=== PATIENT | female | born 1950 | race Two or more races ===

== ENCOUNTER 2016-07-26 16:04 | Emergency (ER) | payer SELFPAY ==
[~2016-07-26] VITALS: Ht 160 cm; Wt 90.7 kg
[2016-07-26 22:11] VITALS: BP 167/95
== END 2016-07-26 22:58 | disposition home or self-care (01) ==
LOC: EDBD 16:04 → ER 16:13
DX: S42.201A Unspecified fracture of upper end of right humerus, initial encounter for closed fracture (principal); E11.9 Type 2 diabetes mellitus without complications; I10 Essential (primary) hypertension; Z95.1 Presence of aortocoronary bypass graft; Z86.73 Personal history of transient ischemic attack (TIA), and cerebral infarction without residual deficits; W19.XXXA Unspecified fall, initial encounter; Y93.89 Activity, other specified; Y99.8 Other external cause status; Y92.89 Other specified places as the place of occurrence of the external cause
CPT/HCPCS: 29105; 51702